=== PATIENT | male | born 1985 | race Caucasian/White ===

== ENCOUNTER 2020-09-18 18:34 | Emergency (ER) | payer OTHER ==
[~2020-09-18] VITALS: Ht 180.3 cm; Wt 104.3 kg
[2020-09-18] MEDS ORDERED: PRISTIQ100 MG PO (18:46)
[2020-09-18] MEDS ORDERED: CLONAZEPAM 0.50.5 M1 PO (18:47)
[2020-09-18] MEDS ORDERED: KEFLEX500 M1 PO (18:51)
[2020-09-18] MEDS ORDERED: IBUPROFEN 600600 M1 PO (18:52)
[2020-09-18] MEDS ORDERED: NORCO5 PO (18:52)
[2020-09-18 19:26] VITALS: BP 136/78
== END 2020-09-18 19:26 | disposition home or self-care (01) ==
LOC: M.ERS 18:34
DX: S61.411A Laceration without foreign body of right hand, initial encounter (principal); F32.9 Major depressive disorder, single episode, unspecified; Z79.899 Other long term (current) drug therapy; W26.8XXA Contact with other sharp object(s), not elsewhere classified, initial encounter; Y93.89 Activity, other specified; Y92.89 Other specified places as the place of occurrence of the external cause; Y99.8 Other external cause status